=== PATIENT | male | born 1985 | race Two or more races ===

== ENCOUNTER 2019-05-21 12:02 | Emergency (ER) | payer MEDICAID, OTHER ==
[~2019-05-21] VITALS: Ht 167.6 cm; Wt 65.8 kg
[2019-05-21 12:24] VITALS: BP 128/81
== END 2019-05-21 14:48 | disposition home or self-care (01) ==
LOC: ER 12:02
DX: K08.89 Other specified disorders of teeth and supporting structures (principal); Z53.21 Procedure and treatment not carried out due to patient leaving prior to being seen by health care provider